=== PATIENT | female | born 1990 | race Caucasian/White ===

== ENCOUNTER 2016-09-22 14:19 | Emergency (ER) | payer MEDICAID ==
[2016-09-22] MEDS ORDERED: OLANZapine 10 MG VIAL IM STA ×2 (14:28→14:43)
[2016-09-22] MEDS ORDERED: LORazepam 2 MG/ML SYRINGE IM STA (14:28)
--- NOTE | 2016-09-22 14:31 | ED Physician Documentation ---
PD HPI MHE - Stated complaint Stated Complaint: MHE - Chief complaint Chief Complaint: MHE - History obtained from History obtained from: Patient, Police - History of Present Illness Primary symptom: Other (She was [facility] in [place] [facility], she is very agitated because CPS became involved and took her child today. She was fighting with police and is belligerent and uncooperative. She is in handcuffs.) Review of Systems Unable to obtain: Uncooperative PD PAST MEDICAL HISTORY - Allergies Allergies/Adverse Reactions: Allergies Allergy/AdvReac Type Severity Reaction Status Date / Time No Known Drug Allergies Allergy Verified 09/22/16 14:34 PD ED PE NORMAL - Vitals Vital signs reviewed: Yes - General General: Other (She is alert and oriented albeit hyperventilating and during my evaluation despite being in handcuffs with police at the bedside she stands up and starts to run at a nurse. She is spitting and belligerent. She is hard to redirect.) - HEENT HEENT: PERRL, EOMI - Neck Neck: Supple, no meningeal sign, No bony TTP - Cardiac Cardiac: RRR, No murmur - Respiratory Respiratory: No respiratory distress, Clear bilaterally - Abdomen Abdomen: Normal bowel sounds, Soft, Non tender - Back Back: No CVA TTP, No spinal TTP - Neuro Neuro: Alert and oriented X 3, No motor deficit, No sensory deficit - Psych Psych: Other (Angry, Impossible to redirect, spitting at staff and aggressive) Results - Vitals Vitals: Vital Signs - 24 hr 09/22/16 09/22/16 09/22/16 14:15 15:21 15:40 Temperature 36.8 C Heart Rate 71 102 H 100 Respiratory 25 H 16 18 Rate Blood Pressure 130/74 127/69 122/73 O2 Saturation 94 95 99 09/22/16 18:18 Temperature 36.9 C Heart Rate 102 H Respiratory 16 Rate Blood Pressure 110/72 O2 Saturation 97 Oxygen O2 Source Room air - Labs Labs: Laboratory Tests 09/22/16 09/22/16 09/22/16 14:30 14:35 14:35 WBC 12.8 H RBC 4.68 Hgb 13.3 Hct 39.2 MCV 83.8 MCH 28.5 MCHC 34.0 RDW 13.2 Plt Count 314 MPV 7.6 L Neut # 9.3 H Lymph # 2.5 Spink # 0.8 Eos # 0.2 Baso # 0.1 Absolute Nucleated RBC 0.00 Nucleated RBCs 0.0 Sodium 138 Potassium 4.3 Chloride 109 Carbon Dioxide 19 L Anion Gap 10.0 BUN 17 Creatinine 1.0 Estimated GFR (MDRD) 69 L Glucose 135 H Calcium 9.1 Total Bilirubin 0.8 AST 29 ALT 14 Alkaline Phosphatase 77 Total Protein 7.5 Albumin 4.6 Globulin 2.9 Albumin/Globulin Ratio 1.6 Lipase 36 TSH Urine Color YELLOW Urine Clarity CLEAR Urine pH 6.0 Ur Specific [place] 1.010 Urine Protein NEGATIVE Urine Glucose (UA) NEGATIVE Urine Ketones NEGATIVE Urine Occult Blood NEGATIVE Urine Nitrite NEGATIVE Urine Bilirubin NEGATIVE Urine Urobilinogen 0.2 (NORMAL) Ur Leukocyte Esterase NEGATIVE Ur Microscopic Review NOT INDICATED Urine Culture Comments NOT INDICATED Salicylates < 6.0 Urine Opiates Screen NEGATIVE Ur Oxycodone Screen NEGATIVE Urine Methadone Screen NEGATIVE Ur Propoxyphene Screen NEGATIVE Acetaminophen < 10 L Ur Barbiturates Screen NEGATIVE Ur Tricyclics Screen NEGATIVE Ur Phencyclidine Scrn NEGATIVE Ur Amphetamine Screen NEGATIVE U Methamphetamines Scrn NEGATIVE U Benzodiazepines Scrn NEGATIVE Urine Cocaine Screen NEGATIVE U Cannabinoids Screen NEGATIVE Ethyl Alcohol < 5.0 09/22/16 14:35 WBC RBC Hgb Hct MCV MCH MCHC RDW Plt Count MPV Neut # Lymph # Spink # Eos # Baso # Absolute Nucleated RBC Nucleated RBCs Sodium Potassium Chloride Carbon Dioxide Anion Gap BUN Creatinine Estimated GFR (MDRD) Glucose Calcium Total Bilirubin AST ALT Alkaline Phosphatase Total Protein Albumin Globulin Albumin/Globulin Ratio Lipase TSH 0.40 Urine Color Urine Clarity Urine pH Ur Specific [place] Urine Protein Urine Glucose (UA) Urine Ketones Urine Occult Blood Urine Nitrite Urine Bilirubin Urine Urobilinogen Ur Leukocyte Esterase Ur Microscopic Review Urine Culture Comments Salicylates Urine Opiates Screen Ur Oxycodone Screen Urine Methadone Screen Ur Propoxyphene Screen Acetaminophen Ur Barbiturates Screen Ur Tricyclics Screen Ur Phencyclidine Scrn Ur Amphetamine Screen U Methamphetamines Scrn U Benzodiazepines Scrn Urine Cocaine Screen U Cannabinoids Screen Ethyl Alcohol PD MEDICAL DECISION MAKING - ED course ED course: on arrival the patient is very agitated, belligerent, she actually makes a run at 1 of the nurses here. Patient and staff safety she was physically and chemically restrained. After an appropriate metabolizing period. The P saw her and cleared her for outpatient treatment, no grounds per her for snf and the patient wanted to leave. Departure - Departure Disposition: 01 Home, Self Care Clinical Impression: Agitation Condition: Good Record reviewed to determine appropriate education?: Yes Instructions: ED Stress React Comments: Call your doctor to arrange a follow-up appointment, make the next available appointment. In the interim, return anytime if worse or if new symptoms develop. Follow-up with [facility] at [phone] to schedule psychiatric care and counseling.
[2016-09-22 14:58] LABS: BILIRUBIN,URINE NEGATIVE (NEGATIVE)
[2016-09-22 15:03] LABS: BASOPHILS # (AUTO) 0.1 10^3/uL (0.0-0.1); BASOPHILS % (AUTO) 0.5 %; EOSINOPHILS # (AUTO) 0.2 10^3/uL (0.0-0.7); EOSINOPHILS % (AUTO) 1.2 %; HCT - HEMATOCRIT 39.2 % (37.0-47.0); HGB - HEMOGLOBIN 13.3 g/dL (12.0-16.0); LYMPHOCYTES # (AUTO) 2.5 10^3/uL (1.5-3.5); LYMPHOCYTES % (AUTO) 19.4 %; MEAN CORPUSCULAR HEMOGLOBIN 28.5 pg (27.0-31.0); MEAN CORPUSCULAR VOLUME 83.8 fL (81.0-99.0); MEAN PLATELET VOLUME 7.6 fL (7.9-10.8); MONOCYTES # (AUTO) 0.8 10^3/uL (0.0-1.0); MONOCYTES % (AUTO) 5.9 %; NEUTROPHILS # (AUTO) 9.3 10^3/uL (1.5-6.6); RED BLOOD COUNT 4.68 10^6/uL (4.20-5.40); RED CELL DISTRIBUTION WIDTH 13.2 % (12.0-15.0); UNCORRECTED WHITE BLOOD COUNT 12.8 x10^3/uL; WHITE BLOOD COUNT 12.8 x10^3/uL (4.8-10.8)
[2016-09-22 15:06] LABS: UA CHARGE (STRIP ONLY) YES; UR CULTURE IF IND NOT INDICATED
[2016-09-22] MEDS ORDERED: KETAMINE 500 MG/10 ML VIAL IM STA (15:11)
[2016-09-22] MEDS ORDERED: KETAMINE 500 MG/10 ML VIAL ONE (15:11)
[2016-09-22 15:12] LABS: ALBUMIN/GLOBULIN RATIO 1.6 (1.0-2.2); BILIRUBIN,TOTAL 0.8 mg/dL (0.2-1.0); BUN - BLOOD UREA NITROGEN 17 mg/dL (6-20); CALCIUM 9.1 mg/dL (8.5-10.3); CARBON DIOXIDE - CO2 19 mmol/L (21-32); CHLORIDE 109 mmol/L (101-111); GFR - MDRD 69 (>89); GLUCOSE 135 mg/dL (70-100); LIPASE 36 U/L (22-51); POTASSIUM 4.3 mmol/L (3.5-5.0); SALICYLATE < 6.0 mg/dL; SODIUM 138 mmol/L (135-145); TOTAL PROTEIN 7.5 g/dL (6.7-8.2)
[2016-09-22] MEDS ORDERED: OLANZapine 10 MG VIAL IM ONE (15:17)
[2016-09-22 15:23] LABS: ACETAMINOPHEN < 10 ug/mL (10-30)
[2016-09-22 20:37] VITALS: BP 120/73
== END 2016-09-22 20:39 | disposition home or self-care (01) ==
LOC: EDBD → ED 14:19
DX: R45.1 Restlessness and agitation (principal); Z59.0 Homelessness
CPT/HCPCS: 36415; 80053; 80306; 80307; 80320; 80329; 81001; 81003; 83690; 84443; 85025; 87086; 96372; 99284

== ENCOUNTER → 2016-09-22 | Outpatient (CLI) | payer MEDICAID | END | disposition EMS.NT | DX: Z03.89 Encounter for observation for other suspected diseases and conditions ruled out (principal) ==